=== PATIENT | male | born 1975 | race African-American/Black ===

== ENCOUNTER 2017-03-01 14:52 | Emergency (ER) | payer MEDICAID, OTHER ==
[~2017-03-01] VITALS: Ht 170.2 cm; Wt 91.0 kg
[2017-03-01 14:55] VITALS: Ht 170.2 cm; Wt 91.0 kg
[2017-03-01] MEDS ORDERED: STERILE WATER 1L IRRIG BTL IRR STA (15:10)
[2017-03-01] MEDS ORDERED: LIDOCAINE 1% (MDV) 10 ML INJ INJ STA (15:10)
[2017-03-01] MEDS ORDERED: HYDROCODONE/APAP (5/325) TAB PO STA (15:10)
[2017-03-01] MEDS ORDERED: DIPHTH/TET/ACEL PERTUSS (ADULT) 0.5 ML VIAL IM ONE (15:30)
[2017-03-01] MEDS ORDERED: IBUPROFEN 600 MG TAB PO ONE (15:30)
--- NOTE | 2017-03-01 15:59 | RADRPT ---
PROCEDURE: XR Thumb. CLINICAL INDICATION: Left thumb pain TECHNIQUE: Three views of the left thumb are available for review. COMPARISON: None available FINDINGS: There is mildly comminuted fracture of the tuft of the distal phalanx of the left thumb. The remaind er of the bones are intact. Soft tissues are within normal limits. IMPRESSION: 1. Comminuted fracture of the tuft of the distal phalanx of the left thumb. RPTAT: GG .Pavel Sheth MD, Date Time Electronically viewed and signed by .Pavel Sheth MD, on 03/01/2017 15:59 .L/
[2017-03-01] MEDS ORDERED: CEFAZOLIN 1 GM INJ IM ONE (16:00)
[2017-03-01] MEDS ORDERED: IBUP-1542 PO (16:18)
[2017-03-01] MEDS ORDERED: HYDR-906 PO (16:18)
[2017-03-01] MEDS ORDERED: CEPH-443 PO (16:18)
--- NOTE | 2017-03-01 16:27 | ERD ---
ER Documentation Chief Complaint Date/Time DATE: 03/01/17 TIME: 16:23 Chief Complaint crush injury, car dom fell on left thumb x 30mins ago. HPI This 41-year-old male presents with a crush injury to his left thumb after a car dom fell on his left, working in a car. He has bleeding a deformity of the tip of his left thumb. His tetanus is not up-to-date. ROS All systems reviewed and are negative except as per history of present illness. Medications Home Meds Active Scripts Ibuprofen* (Motrin*) 600 Mg Tab, 600 MG PO Q6, #20 TAB Prov:DERRICK RODRIGUEZ MD 03/01/17 Cephalexin* (Keflex*) 500 Mg Capsule, 500 MG PO QID for 7 Days, CAP Prov:DERRICK RODRIGUEZ MD 03/01/17 Hydrocodone/Acetaminophen ([place] 5-325 Tablet) 1 Each Tablet, 1 TAB PO Q6H Y for PAIN, #15 TAB Prov:DERRICK RODRIGUEZ MD 03/01/17 Allergies Allergies: Coded Allergies: No Known Allergy (Unverified , 03/01/17) PMhx/Soc Medical and Surgical Hx: pt denies Medical Hx, pt denies Surgical Hx Hx Alcohol Use: Yes Hx Substance Use: No Hx Tobacco Use: Yes Smoking Status: Current every day smoker Physical Exam Vitals Vital Signs Date Time Temp Pulse Resp B/P Pulse Ox O2 Delivery O2 Flow Rate FiO2 03/01/17 14:55 98.2 85 20 155/93 98 Physical Exam Const: [] Alert, [id number]. Head: Atraumatic Eyes: Normal Conjunctiva ENT: Normal External Ears, Nose and Mouth. Neck: Full range of motion..~ No meningismus. Resp: Clear to auscultation bilaterally Cardio: Regular rate and rhythm, no murmurs Abd: Soft, non tender, non distended. Normal bowel sounds Skin: No petechiae or rashes Back: No midline or flank tenderness Ext: No cyanosis, or edema. Left thumb shows a degloving of the left thumb at the base of the left nail. Involves approximately two thirds of the circumference of the digit. The bone is exposed. Patient has no appreciable deficits to flexion or extension of the PIP or DIP. Neur: Awake and alert Psych: Normal Mood and Affect Results 24 hrs Current Medications Medications (Trade) Dose Ordered Sig/Mo Route PRN Reason Start Time Stop Time Status Last Admin Dose Admin Ibuprofen (Motrin) 600 mg ONCE ONCE PO 03/01/17 15:30 03/01/17 15:31 DC 03/01/17 15:25 Diphtheria/ Tetanus/Acell Pertussis (Adacel) 0.5 ml ONCE ONCE IM 03/01/17 15:30 03/01/17 15:31 DC 03/01/17 15:27 Sterile Water (Water Sterile For Irrigation) 1,000 ml ONCE STAT IRR 03/01/17 15:10 03/01/17 15:12 DC 03/01/17 15:27 Lidocaine HCl (Lidocaine 1% (Mdv) 10 ml) 10 ml ONCE STAT INJ 03/01/17 15:10 03/01/17 15:12 DC Acetaminophen/ Hydrocodone Bitart ([place] (5/325)) 1 tab ONCE STAT PO 03/01/17 15:10 03/01/17 15:12 DC 03/01/17 15:27 Cefazolin Sodium (Ancef) 1 gm ONCE ONCE IM 03/01/17 16:00 03/01/17 16:01 DC Procedures/MDM X-ray left thumb 2V Interpreted by me: Bones: Comminuted fracture of the tip of the left thumb. Joints: [No dislocation] Foreign body: [None]. Minimally displaced comminuted fracture of the tip of the left thumb. Procedure note-patient was given a tetanus booster. Patient was given Ancef 1 g IM. Left thumb was copiously irrigated with normal saline. Left thumb was anesthetized using 4 cc of lidocaine to the digital block. Anesthesia was obtained. 6 4-0 nylon sutures were used to reapproximate the degloved portion of the distal thumb. Patient had good anatomic position after replacement of the degloved segment. Wound was dressed and patient was placed in a left thumb metal splint was neurovascular intact after splint. She is left-hand dominant. Patient was discharged home instructions for 2 day wound check in 10-14 days suture removal as well as Bowdon and Keflex and ibuprofen for pain. Patient was recommended and referred to see a hand surgeon or orthopedist within the next week for further evaluation and management of his injury. Patient was advised he may have primary disability or deformity without proper follow-up. Departure Diagnosis: Primary Impression: Fracture, finger, open Encounter type: initial encounter Finger: thumb Phalanx: distal Fracture alignment: nondisplaced Laterality: left Qualified Code: S62.525B - Open nondisplaced fracture of distal phalanx of left thumb, initial encounter Condition: Stable Patient Instructions: Fracture, Finger (Open) Referrals: MARGA ALCOCER MD,IN [facility] Additional Instructions: There is a fracture of thumb at risk for disability of the affected finger. See orthopedist or hand surgeon within the next week to ensure proper healing . You have a fracture of the thumb. Wound check in 2 days for redness and suture removal in 10-14 days. May need authorization from primary doctor for a specialist visit. DERRICK RODRIGUEZ MD Mar 01, 2017 16:27
== END 2017-03-01 17:15 | disposition home or self-care (01) ==
LOC: FTE 14:52
DX: S62.525B Nondisplaced fracture of distal phalanx of left thumb, initial encounter for open fracture (principal); F17.210 Nicotine dependence, cigarettes, uncomplicated; S61.012A Laceration without foreign body of left thumb without damage to nail, initial encounter; W20.8XXA Other cause of strike by thrown, projected or falling object, initial encounter; Y92.9 Unspecified place or not applicable; Z23 Encounter for immunization
CPT/HCPCS: 12001; 73140; 90471; 90715; 96372; A4217; J0690; Z7502; Z7610

== ENCOUNTER 2017-03-03 13:06 | Emergency (ER) | payer MEDICAID ==
[~2017-03-03] VITALS: Ht 160 cm; Wt 90.5 kg
[~2017-03-03 13:06] MED LIST: CEPH-443 PO; HYDR-906 PO; IBUP-1542 PO
[2017-03-03 13:10] VITALS: Ht 160 cm; Wt 90.5 kg
--- NOTE | 2017-03-03 15:04 | ERD ---
ER Documentation Chief Complaint Chief Complaint Patient here for a wound recheck HPI Patient is a 41-year-old male presenting to the emergency department for recheck of his left thumb after he had a open fracture secondary to a crush injury 2 days ago. The patient states he is currently having moderate pain which is constant to the left thumb. The patient has not had any other follow- up since the injury occurred. The patient was given a prescription for Keflex and Montezuma, however he did not have them filled yet. The patient denies any fevers, chills, discharge from the area, or other symptoms at this time. ROS All systems reviewed and are negative except as per history of present illness. Medications Home Meds Active Scripts Ibuprofen* (Motrin*) 600 Mg Tab, 600 MG PO Q6, #20 TAB Prov:DERRICK RODRIGUEZ MD 03/01/17 Cephalexin* (Keflex*) 500 Mg Capsule, 500 MG PO QID for 7 Days, CAP Prov:DERRICK RODRIGUEZ MD 03/01/17 Hydrocodone/Acetaminophen ([place] 5-325 Tablet) 1 Each Tablet, 1 TAB PO Q6H Y for PAIN, #15 TAB Prov:DERRICK RODRIGUEZ MD 03/01/17 Allergies Allergies: Coded Allergies: No Known Allergy (Unverified , 03/01/17) PMhx/Soc Medical and Surgical Hx: pt denies Medical Hx, pt denies Surgical Hx Hx Alcohol Use: Yes Hx Substance Use: No Hx Tobacco Use: Yes Smoking Status: Current every day smoker Physical Exam Vitals Vital Signs Date Time Temp Pulse Resp B/P Pulse Ox O2 Delivery O2 Flow Rate FiO2 03/03/17 13:10 98.5 70 20 133/87 99 Physical Exam Const: Nontoxic, well-appearing male in no acute distress. Head: Atraumatic Eyes: Normal Conjunctiva ENT: Normal External Ears, Nose and Mouth. Skin: No petechiae or rashes Ext: There are sutures in place over the distal end of the left thumb. No active bleeding currently. The wound appears to be healing well. Strength and sensation is intact in the left thumb. Neur: Awake and alert Psych: Normal Mood and Affect Procedures/MDM 41-year-old male presents to the emergency department for recheck of his left thumb. The patient did have a crush injury 2 days ago here. The wound appears to be healing well. Strength and sensation is intact. The patient was advised to follow-up with the [facility] for further diagnostic testing, and treatment. The patient agreed with the discharge plan a diagnosis. No significant sign of cellulitis at this time. The patient was advised he will need to start taking the Keflex and Montezuma as prescribed. He understands this information. All questions and concerns were addressed. Low suspicion for compartment syndrome, tendon or ligamental injury, neurovascular injury, or other emergent conditions. The patient was stable for discharge with further follow-up at the [facility]. Dressing was changed with nonstick dressing, splint applied to the left thumb. Departure Diagnosis: Primary Impression: Follow-up examination for injury Condition: Fair Patient Instructions: Fracture, Finger (Open) Referrals: [facility] Additional Instructions: Es patsy importante ir a [facility] por michelle otra examen. No mas mejor en 2-3 maldonado, regresar. Mas peor en 24 horas, regresear rapidamente. Ir a doctor primario in 5-7 maldonado. Usar instrucciones cuando ludwig medicamento. GAVINO TIMMONS PA-C Mar 03, 2017 15:04
[2017-03-03 15:18] VITALS: BP 133/87; RESP 20
== END 2017-03-03 15:19 | disposition home or self-care (01) ==
LOC: FTE 13:06
DX: Z48.1 Encounter for planned postprocedural wound closure (principal); F17.210 Nicotine dependence, cigarettes, uncomplicated
CPT/HCPCS: 99281

== ENCOUNTER 2017-03-24 12:07 | Emergency (ER) | END 2017-03-24 14:22 | disposition home or self-care (01) | DX: Z48.02 Encounter for removal of sutures (principal) | CPT/HCPCS: 29130; Z7502 ==

== ENCOUNTER 2017-04-25 11:28 | Emergency (ER) | payer SELFPAY ==
[~2017-04-25] VITALS: Ht 177.8 cm; Wt 92.0 kg
[2017-04-25 11:31] VITALS: Ht 177.8 cm; Wt 92.0 kg
[2017-04-25] MEDS ORDERED: IBUPROFEN 600 MG TAB PO ONE (12:30)
[2017-04-25] MEDS ORDERED: LIDOCAINE 1% (MDV) 20 ML INJ SC ONE (12:30)
--- NOTE | 2017-04-25 12:40 | ERD ---
ER Documentation Chief Complaint Chief Complaint left 1st finger pain x 3 days HPI This 42-year-old male presents for recheck of his left thumb. Approximately 7- 8 weeks ago he sustained an open fracture of his affected thumb. He was sutured by me. Patient has been here for suture removals and wound checks and has been repeatedly referred to hand clinic at all of you. Patient has not gone. Patient complains of pain today around the left thumb nail with no fevers or restricted range of motion or weakness. He believes the nail needs to be removed. ROS All systems reviewed and are negative except as per history of present illness. Medications Home Meds Active Scripts Ibuprofen* (Motrin*) 600 Mg Tab, 600 MG PO Q6, #20 TAB Prov:DERRICK RODRIGUEZ MD 04/25/17 Ibuprofen* (Motrin*) 600 Mg Tab, 600 MG PO Q6, #20 TAB Prov:DERRICK RODRIGUEZ MD 03/01/17 Cephalexin* (Keflex*) 500 Mg Capsule, 500 MG PO QID for 7 Days, CAP Prov:DERRICK RODRIGUEZ MD 03/01/17 Hydrocodone/Acetaminophen ([place] 5-325 Tablet) 1 Each Tablet, 1 TAB PO Q6H Y for PAIN, #15 TAB Prov:DERRICK RODRIGUEZ MD 03/01/17 Allergies Allergies: Coded Allergies: No Known Allergy (Unverified , 03/01/17) PMhx/Soc Hx Alcohol Use: Yes Hx Substance Use: No Hx Tobacco Use: Yes Physical Exam Vitals Vital Signs Date Time Temp Pulse Resp B/P Pulse Ox O2 Delivery O2 Flow Rate FiO2 04/25/17 11:31 96.5 93 18 140/97 99 Physical Exam Const: [] Alert, [id number]. Head: Atraumatic Eyes: Normal Conjunctiva ENT: Normal External Ears, Nose and Mouth. Neck: Full range of motion..~ No meningismus. Resp: Clear to auscultation bilaterally Cardio: Regular rate and rhythm, no murmurs Abd: Soft, non tender, non distended. Normal bowel sounds Skin: No petechiae or rashes Back: No midline or flank tenderness Ext: No cyanosis, or edema. There is a partial avulsion of the left thumbnail. There is a new nail growing underneath. There is no erythema and laceration appears to be healing without complications or signs of infection. Is no evidence of tendon or neurologic deficits. Neur: Awake and alert Psych: Normal Mood and Affect Results 24 hrs Current Medications Medications (Trade) Dose Ordered Sig/Mo Route PRN Reason Start Time Stop Time Status Last Admin Dose Admin Ibuprofen (Motrin) 600 mg ONCE ONCE PO 04/25/17 12:30 12 12:31 DC 04/25/17 12:37 Lidocaine (Xylocaine 1% (Mdv) 20 ml) 20 ml ONCE ONCE SC 04/25/17 12:30 04/25/17 12:31 DC Procedures/MDM X-ray left thumb 2V Interpreted by me: Bones: Sub-occult fracture with possible nonunion for Joints: [No dislocation] Foreign body: [None]. Sub-occult fracture of the left thumb tuft with possible nonunion versus delayed healing. Procedure note-via sterile technique the left thumb was anesthetized using a digital block with 1% lidocaine. Using clamps and scissors the partially avulsed thumbnail was removed. There is a new nail growing underneath. There is a laceration of the nailbed without appreciable erythema, dehiscence, deformities. Was dressed and patient was placed in a left thumb metal splint. Patient is neurovascular intact after splint. She presents with a healing left thumb open fracture. There is no current signs of infection, osteomyelitis, tenosynovitis, although there is delayed healing and possible nonunion. Patient was reassured to see hand surgeon for further evaluation and treatment although patient has been noncompliant to this point. He is advised to return sooner for fevers, redness, new worsening symptoms otherwise were splint advised that any pain and see hand surgeon as directed. Departure Diagnosis: Primary Impression: Finger injury Encounter type: initial encounter Laterality: left Qualified Code: S69.92XA - Injury of finger of left hand, initial encounter Additional Impressions: Nail avulsion Encounter type: initial encounter Qualified Code: S61.309A - Avulsion of nail plate, initial encounter Open fracture Condition: Stable DERRICK RODRIGUEZ MD Apr 25, 2017 12:40
[2017-04-25] MEDS ORDERED: IBUP-1542 PO (13:03)
--- NOTE | 2017-04-25 13:18 | RADRPT ---
PROCEDURE: XR thumb CLINICAL INDICATION: Fracture follow-up. TECHNIQUE: Left thumb, Three views. COMPARISON: 03/01/2017. FINDINGS: The bone mineralization is age appropriate. Again noted is a displaced comminuted fracture of the tuft of the thumb distal phalanx with fracture line present. Alignment appears unchanged. There is no significant joint space narrowing. IMPRESSION: Displaced comminuted fracture of the tuft of the thumb distal phalanx with fracture line visible. No significant interval healing across the fracture site. RPTAT: AAEE Dixon Grullon Physician Date Time Electronically viewed and signed by Dixon Grullon Physician on 04/25/2017 13:18 PH/
[2017-04-25 13:21] VITALS: BP 126/75; PULSE 74; RESP 18
== END 2017-04-25 13:21 | disposition home or self-care (01) ==
LOC: FTE 11:28
DX: S61.102A Unspecified open wound of left thumb with damage to nail, initial encounter (principal); S62.502B Fracture of unspecified phalanx of left thumb, initial encounter for open fracture; X58.XXXA Exposure to other specified factors, initial encounter; Y92.9 Unspecified place or not applicable
CPT/HCPCS: 73140